=== PATIENT | male | born 1985 | race Caucasian/White ===

== ENCOUNTER 2018-04-24 01:58 | Emergency (ER) | payer OTHER ==
[~2018-04-24] VITALS: Ht 180.3 cm; Wt 113.4 kg
[~2018-04-24 01:58] MED LIST: MECLIZINE HCL25 MG PO
[2018-04-24] MEDS ORDERED: CIPRO500 MG PO (04:37)
[2018-04-24] MEDS ORDERED: NORCO 5-325 TA1 EACH PO (04:37)
== END 2018-04-24 04:58 | disposition home or self-care (01) ==
LOC: ED 01:58
DX: N45.1 Epididymitis (principal)
CPT/HCPCS: 76870; 81001; 96374; 96375; 99284; J1170; J2405

== ENCOUNTER 2021-08-14 05:25 | Emergency (ER) | payer BC ==
[~2021-08-14] VITALS: Ht 180.3 cm; Wt 99.8 kg
[~2021-08-14 05:25] MED LIST changes: +CIPRO500 MG PO; +NORCO 5-325 TA1 EACH PO
--- NOTE | 2021-08-15 21:29 | EKG ---
[facility] [address] [facility] [address] [facility] [place], [place] [address] Signed Sinus tachycardia Otherwise normal ECG No previous ECGs available Confirmed by GIORGIO LORENZO DO ([id number]) on 08/15/2021 9:29:41 PM Electronically Signed By: GIORGIO LORENZO DO 08/15/[id number] PATIENT NAME: BERNABE BEEBE Electrocardiogram DATE OF : 81 PHYSICIAN: GIORGIO LORENZO DO REPORT #: [id number] REPORT IS CONFIDENTIAL AND NOT TO BE RELEASED WITHOUT AUTHORIZATION
== END 2021-08-14 07:14 | disposition home or self-care (01) ==
LOC: ED 05:25
DX: R00.2 Palpitations (principal); T50.B95A Adverse effect of other viral vaccines, initial encounter
CPT/HCPCS: 71045; 80053; 84443; 84484; 85025; 85379; 93005; 93010; 99285-25

== ENCOUNTER 2023-11-17 06:45 | Day surgery (SDC) | payer OTHER ==
[2023-11-15 14:00] VITALS: BP 120/78
[~2023-11-17] VITALS: Ht 180.3 cm; Wt 98.6 kg
[~2023-11-17 06:45] MED LIST changes: +HYDROCODON-ACE1 EA11 PO; +IBUPROFEN200 M1 PO
[2023-11-17 07:04] VITALS: BP 127/80
--- NOTE | 2023-11-17 07:21 | NUR ---
HAVE REVIEWED PROCEDURE WITH PT. STATES HE WASNT TOLD ABOUT PROCEDURE BUT DID GET PAPER WORK.
--- NOTE | 2023-11-17 07:51 | NUR ---
ROUNDS. PT EXPRESSED ANTICIPATION OF RELIEF; EXHIBITED FEW SIGNS OF ANXIETY. FACILITATED STORY-TELLING; PROVIDED SUPPORTIVE PRESENCE; NORMALIZED PT EXPERIENCE; PROVIDED PRAYER. PT EXPRESSED GRATITUDE.
--- NOTE | 2023-11-17 08:09 | NUR ---
DR JIMENEZ AND MAX MARTINEZ HAVE BEEN IN TO TALK WITH PT.
--- NOTE | 2023-11-17 10:05 | NUR ---
11/17/23 1005 Jennifer Zambrano 4977 PT ARRIVED IN PACU NON RESPONSIVE TO NOXIOUS STIMULI WITH OPA IN PLACE. VITAL SIGNS TAKEN AND PT REACTIVE. OPA REMOVED. 0950 ICE TO L GROIN PER ORDERS. 1000 PT AWAKE AND TALKING TO STAFF. NO C/O'S.
[2023-11-17 10:21] VITALS: BP 116/72
--- NOTE | 2023-11-17 10:23 | NUR ---
MOTHER AT BS.
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
[2023-11-17 11:21] VITALS: BP 116/73
[2023-11-17 12:23] VITALS: BP 111/74
--- NOTE | 2023-11-17 12:26 | NUR ---
1055 AND 1010 REPORTS NO RELIEF FROM PAIN RX. 1020 REPORTS 02/15.
[2023-11-17 13:20] VITALS: BP 116/74
== END 2023-11-17 13:25 | disposition home or self-care (01) ==
LOC: DS 06:45 → OPS 06:45 → DS 09:40 → OPS 09:40 → DS 10:30 → OPS 13:25
PROVIDERS: ATTEND Colon & Rectal Surgery
PROC: 0YU60JZ Supplement Left Inguinal Region with Synthetic Substitute, Open Approach (ICD-10-PCS; principal; 2023-11-17 08:10)
DX: K40.30 Unilateral inguinal hernia, with obstruction, without gangrene, not specified as recurrent (principal); F43.10 Post-traumatic stress disorder, unspecified
CPT/HCPCS: J0131; J0690; J1100; J1644; J1885; J2001; J2250; J2405; J2704; J3010; J3490; J7121